=== PATIENT | female | born 1995 | race Caucasian/White ===

== ENCOUNTER 2024-02-20 09:30 | Outpatient (RCR) | payer SELFPAY ==
--- NOTE | 2023-12-10 10:46 | HP.PTEVAL_ITS ---
Patient's Visit Information Visit Information Visit Information: CRISTY HOOKS is a 28 year old F referred to Physical Therapy by Dr. Ramona Echeverria MD with a diagnosis of PELVIC ORGAN PROLAPSE. Date of Evaluation: 12/10/23 Physical Therapist: Judy Francis PT, Cert MDT Visit Plan Frequency: 1x/Week Duration: 2-4 Months Plan: PF THERAPY FOR STRENGTHENING, LENGTHENING/RELAXATION AND ENDURANCE TRAINI NG. URINARY URGE AND FREQUENCY EDUCATION. HEALTHY BLADDER HABIT EDUCATION. TRAINING IN COORDINATION OF PELVIC FLOOR MUSCULATURE WITH HIP AND CORE (TRANSVERSE ABDOMINUS) MUSCULATURE. CORE STRENGTHENING. DANETTE LE ROM, STRETCHING AND STRENGTHENING. TRAINING IN ABDOMINAL CAVITY PRESSURE MGMT WITH ADL'S. Subjective Subjective: Work/Leisure: UNEMPLOYEED. 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 UTERUS PROLAPSE HEMORRHAGED AND WITH 2ND DELIVERY. Disability: NO Present symptoms: PATIENT REPORTS HER MAIN PROBLEM IS URGE INCONTINENCE. SHE STATES SHE CAN NOT ALWAYS MAKE IT TO THE BATHROOM IN TIME WHEN SHE GETS THE URGE TO URINATE. INTERMITTENT DISCOMFORT IN VAGINAL AREA FROM UTERUS PROLAPSE DURING PERIOD. Present since: 2 YEARS Pain Scale: PATIENT DENIES PAIN. Is it getting better, worse or staying the same: STAYING THE SAME Commenced as a result of: CHILDBIRTH Worse: BEING ON PERIOD. Better: HAS NOT FOUND ANYTHING. Disturbed sleep: GETTING UP 0-1 TIMES A NIGHT TO URINATE Previous history/Previous treatment: [facility] [facility] TAUGHT HER KEGELS AFTER DELIVERY OF 2ND BABY 2 YEARS AGO BUT DIDN'T SEEM TO HELP MUCH. ALSO WENT TO [facility] FOR 3 VISITS TO GET PELVIC FLOOR MUSCLES IN PLACE WITH LEG, BACK AND HIP STRETCHES AND MANIPULATIONS BUT PATIENT REPORTS SHE DIDN'T NOTICE A DIFFERNECE. Treatment this episode: ONE JULIANN'T WITH DR. ECHEVERRIA AFTER REFERRAL FROM [facility]- Coughing/sneezing/straining: PATIENT DENIES UI Gait: NORMAL How long can you delay the need to urinate: 0-3 MINUTES Prolapse (Falling out feeling): INTERMITTENT Frequency of Urination: AT LEAST EVERY HOUR Ability to stop urine flow: PARTIALLY Ability to initiate urine stream: YES Dyspareunia: NO Bowel Incontinence: NO Accidents: NO Unexplained weight loss: NO Imaging: NO PMH/Recent major surgery: UNREMARKABLE Objective Objective: Sitting/Standing Posture: FORWARD HEAD AND ROUNDED SHOULDERS. DANETTE SCAPULAR WINGING. R ILIAC CREST HIGHER THAN L. NORMAL LORDOSIS. NO RELEVANT LATERAL SHIFT. Active Correction of posture: NE. ABLE TO CORRECT. DOES NOT MAINTAIN. Other Observations: INDEP GAIT AND TRANSFERS. Sensory deficit: DANETTE LE LIGHT TOUCH SENSATION INTACT AND SYMMETRICAL. ROM deficit: DANETTE LE'S WFL Motor deficit: DANETTE LE'S GROSSLY 5/5 EXCEPT HIPS 4/5. MANUAL INTERNAL VAGINAL TESTING REVEALS 3/5 PELVIC FLOOR STRENGTH X 5 SEC X 3 REPS. Reflexes: 2+ DANETTE LE'S. Dural Signs: NEGATIVE DANETTE LE'S. Lumbar mvmt loss: flex - NIL ext - NIL R SG - NIL L SG - NIL PATIENT DENIES PAIN WITH LUMBAR ROM TESTING ALL PLANES. CORE STRENGTH: FAIR. Palpation: NO ACUTE TENDERNESS IN PELVIC REGIONS. FUNCTIONAL SCREEN: Incontinence Impact Questionnaire Score: 4 Urogenital Distress Inventory Score: 8 Goals Goal 1:: DECREASE URINARY LEAKAGE EPISODES TO ONE OR LESS PER DAY Goal Time Frame: 6-8 Weeks Goal 2:: PATIENT WILL SUCCESSFULLY DELAY VOIDING LONG NEEDED WHEN URGENCY OCCURS TO SUCCESSFULLY MAKE IT TO THE BATHROOM. Goal Time Frame: 8-12 Weeks Goal 3:: PATIENT WILL DEMONSTRATE/COMMUNICATE 10 CONSISTENT AND CONSECUTIVE 10 SECOND PELVIC FLOOR MUSCLE CONTRACTIONS TO DEMONSTRATE IMPROVED PELVIC FLOOR ENDURANCE. Goal Time Frame: 8-12 Weeks Goal 4:: DEVELOP HEALTHY FLUID INTAKE HABITS WITH FLUID INTAKE OF ? BODY WEIGHT IN OUNCES PER DAY AND 2/3 BEING WATER. Goal Time Frame: 2-4 Weeks Goal 5:: NORMALIZE VOIDING FREQUENCEY TO EVERY 3-4 HOURS. Goal Time Frame: 4-6 Weeks Goal 6:: PATIENT WILL BE INDEP WITH A HEP/HOME INSTRUCTIONS FOR CONTINUED IMPROVEMENT ONCE FORMAL PHYSICAL THERAPY CONCLUDES. Goal Time Frame: 8-12 Weeks Rehabilitation Potential Physical Therapy Diagnosis: URGE INCONTINENCE, INCREASED URINARY FREQUENCY, PELVIC FLOOR WEAKNESS AND CORE WEAKNESS. Rehabilitation Potential: Good Anticipated Interventions Patient/Client Instruction: Educate patient on: Condition, Plan of Care and Ris k Factors For the Purpose of:: To improve self management Therapeutic Exercise to Include: Strength training, Endurance training, Coordination, Postural training and Neuromotor development For the Purpose of:: To improve muscle performance and motor function, To improve ability of physical actions for home/community/work/leisure and To improve endurance Text: Thank you for the opportunity to evaluate your patient. For Medicare and Medicare HMO plans, please review the plan of care and approve it. It will need to be FAXED BACK to us at [phone] for Medicare purposes. For Medicare only, by signing this I certify the plan of care. Please let me know if there are questions or concerns regarding this plan of care. Physician Signature: Date:
--- NOTE | 2024-02-20 10:25 | HP.PTDCSUM_ITS ---
Discharge Summary D/C summary: It has been my pleasure to treat CRISTY HOOKS referred by Dr. Ramona Echeverria MD, with the diagnosis of PELVIC ORGAN PROLAPSE for a total of 9 visit(s). Discharge Date: 02/20/24 Please see the following information for a summary of their discharge status. Subjective Subjective: PATIENT REPORTS SHE IS DOING REALLY GOOD. SHE REPORTS SHE IS ABLE TO REST BETTER ON HER BACK NOW THAN SHE EVER HAS BEFORE. NO QUESTIONS OR CONCERNS. EXERCISES ARE GOING GOOD. REPORTS 100% BETTER AND SHE IS REALLY HAPPY SHE WAS ABLE TO GET THIS TREATMENT. SHE REPORTS IT IS REALLY GOOD AND SHE IS FEELING IN CONTROL FOR THE MOST PART. PATIENT REPORTS AT THE [place] SHE COULD LIFT THE BUCKETS OF POTATOES WITH LESS BACK PAIN. LESS BACK PAIN SINCE STARTING PT OVER- ALL BUT SORE SINCE PRACTICING BETTER BODY MECHANICS FROM USING MUSCLES DIFFERENT. STATES SHE HAS GOT A LOT BETTER AT THE EX'S AND TECHNIQUES WITH PRACTICE. Overall Improvement % Improvement: 100 Objective Objective/Function: THIS PATIENT HAS DONE EXCELLENT WITH PHYSICAL THERAPY AND ALL GOALS HAVE BEEN MET. SHE IS INDEP WITH A HEP AND APPROPRIATE FOR AND AGREEABLE TO DISCHARGE. SHE PLANS TO CALL DR. ECHEVERRIA TO LET HER KNOW SHE HAS COMPLETED PT. FUNCTIONAL SCREEN: Incontinence Impact Questionnaire Score: 0 Urogenital Distress Inventory Score: 0 Goals Goal 1:: DECREASE URINARY LEAKAGE EPISODES TO ONE OR LESS PER DAY Goal Progress: Goal Met Goal 2:: PATIENT WILL SUCCESSFULLY DELAY VOIDING LONG NEEDED WHEN URGENCY OCCURS TO SUCCESSFULLY MAKE IT TO THE BATHROOM. Goal Progress: Goal Met Goal 3:: PATIENT WILL DEMONSTRATE/COMMUNICATE 10 CONSISTENT AND CONSECUTIVE 10 SECOND PELVIC FLOOR MUSCLE CONTRACTIONS TO DEMONSTRATE IMPROVED PELVIC FLOOR ENDURANCE. Goal Progress: Goal Met Goal 4:: DEVELOP HEALTHY FLUID INTAKE HABITS WITH FLUID INTAKE OF ? BODY WEIGHT IN OUNCES PER DAY AND 2/3 BEING WATER. Goal Progress: Goal Met Goal 5:: NORMALIZE VOIDING FREQUENCEY TO EVERY 3-4 HOURS. Goal Progress: Goal Met Goal 6:: PATIENT WILL BE INDEP WITH A HEP/HOME INSTRUCTIONS FOR CONTINUED IMPROVEMENT ONCE FORMAL PHYSICAL THERAPY CONCLUDES. Goal Progress: Goal Met Plan Plan: D/C D/C Information d/c sentence: If there are questions or concerns regarding this patient's physical therapy, please feel free to call me at [phone]. Thank you for the referral of this patient. Sincerely, Judy Francis, PT, Cert MDT Balance/Gait/Functional tests Improvement % Improvement: 100
== END 2024-02-20 10:36 | disposition home or self-care (01) ==
LOC: PT 09:30
PROVIDERS: PCP Urology; Referring Provider Urology; Visit Provider Urology
DX: N81.89 Other female genital prolapse (principal)
CPT/HCPCS: 97162; 97530